=== PATIENT | female | born 1970 | race Caucasian/White ===

== ENCOUNTER 2023-12-10 21:25 | Emergency (ER) | payer MEDICAID, SELFPAY ==
[2023-12-10 21:26] VITALS: BP 118/81; PULSE 95; RESP 14; TEMP 36.3; O2SAT 100; BMI 41.1
--- NOTE | 2023-12-10 21:35 | EDS_ITS ---
HPI HPI - Female History of Present Illness Chief Complaint: Female C/O Informant: patient Pain Pain: Positive for Pelvic Pain Onset: Month(s) (1) Context: Gradual Onset Timing: Intermittent Quality: Positive for Dull Location: RLQ Current Severity: Severe Maximum Severity: Severe Worsened by: - (Everything) Relieved by: - (Nothing) Bleeding Issue: Positive for Vaginal bleeding Timing: Intermittent Current Severity: Mild Associated Symptoms Associated Symptoms: Negative for Dysuria, Frequency, Urgency or Hematuria Narrative Narrative: Patient presents with pelvic pain that has been intermittent over the last month. Patient states the pain became worse again tonight. Patient states it came on gradually. Patient describes the pain as dull and throbbing. Patient states the pain is mainly over the right lower abdomen. Patient states everything makes it worse. Patient states nothing makes it better. Patient admits to occasional vaginal bleeding but denies passing any clots or tissue. Patient denies any abnormal vaginal discharge. Patient denies any urinary complaints. Patient denies any fevers or chills. Patient does admit to some nausea and vomiting. PFSH PFSH Home Medications ?Medication ?Instructions ?Recorded ?Last Taken ?Type hydrocodone-acetaminophen 5-325mg 1 tab PO Q6H PRN PRN Pain 3 days 12/11/23 Unknown Rx 5mg-325mg #10 TABLETS Allergy/AdvReac Type Severity Reaction Status Date / Time clarithromycin (From Biaxin) Allergy Severe Anaphylaxis Verified 12/10/23 21:29 Family History (Updated 12/10/23 @ 21:34 by Linda Castillo) Other S/P removal of left ovary Surgical History (Updated 12/10/23 @ 21:[address] Adan Zuñiga DO) History of left oophorectomy Hx of spinal fusion History of cholecystectomy Social History (Updated 12/10/23 @ 21:[address] Adan Zuñiga DO) Smoking Status: Former smoker Electronic Cigarette Use: with nicotine ROS ROS ED Constitutional Constitutional ED: Denies chills or fever(s) Eyes Eyes: Denies blurry vision or change in vision ENT ENT ED: Denies rhinorrhea or sore throat Cardiovascular Cardiovascular: Denies chest pain or palpitations Respiratory/Chest Respiratory/Chest: Denies cough or dyspnea Gastrointestinal Gastrointestinal: Reports abdominal pain, nausea and vomiting; Denies diarrhea Genitourinary Genitourinary ED: Denies dysuria or hematuria Musculoskeletal Musculoskeletal: Denies back pain or neck pain Integumentary Denies abscess or rash Neurologic Neurologic: Denies headache(s) or weakness Allergic/Immunologic Allergic/Immunologic ED: Denies mouth swelling or urticaria EXAM Physical Exam Const Vital Signs: 12/10/23 21:26 12/10/23 23:26 Temperature 97.4 F L 98.1 F Temperature Source Temporal Oral Pulse Rate 95 68 Respiratory Rate 14 16 Blood Pressure 118/81 H 102/70 Blood Pressure Mean 93 80 Pulse Ox 100 100 Oxygen Delivery Method Room Air Room Air Positive well nourished and well developed General Appearance ED: well developed and NAD HEENT Reports moist mucous membranes Neck supple and no JVD Resp normal respiratory effort and clear to auscultation bilaterally Cardio regular rate and regular rhythm GI soft to palpation and non-distended Palpation: tender RLQ and guarding RLQ Extremity normal to inspection and full ROM Neuro oriented x3, CN's II-XII intact bilaterally and no sensory deficits noted Sensorium / Orientation: alert Motor Exam: strength 5/5 throughout Psych mental status grossly normal Skin no rashes or lesions noted MDM MDM MDM Narrative Medical decision making narrative: Differential diagnosis includes appendicitis, ovarian cyst, ovarian mass, diverticulitis, colitis, ureteral calculus, urinary tract infection, pyelonephritis, and gastroenteritis. CBC will be obtained to assess for leukocytosis and anemia. Basic metabolic profile will be obtained to assess for electrolyte abnormality and renal function. Urinalysis will be obtained to assess for urinary tract infection and hematuria. CT scan of the abdomen pelvis will be obtained to assess for ureteral calculus, ovarian cyst, ovarian mass, and appendicitis. Lab Data Attestation: I reviewed the patient's lab results. Lab results narrative: CBC was reviewed and was within normal limits. Basic metabolic profile was r eviewed. Potassium was slightly low at 3.0. The remainder was within normal limits. Serum hCG was reviewed and was negative. Urinalysis was reviewed. There is no evidence of urinary tract infection or hematuria. Labs: Laboratory Results - last 24 hr 12/10/23 12/10/23 22:00 22:10 WBC 8.5 RBC 4.94 Hgb 14.5 Hct 43.8 MCV 88.7 MCH 29.4 MCHC 33.1 RDW Std Deviation 46.1 H RDW Coeff of Krystal 14.3 Plt Count 364 MPV 9.5 Immature Gran % (Auto) 0.200 Neut % (Auto) 51.6 Lymph % (Auto) 40.1 [place] % (Auto) 6.3 Eos % (Auto) 1.4 Baso % (Auto) 0.4 Absolute Neuts (auto) 4.4 Absolute Lymphs (auto) 3.40 Nucleated RBC % 0 Sodium 141 Potassium 3.0 L Chloride 110 H Carbon Dioxide 25.0 Anion Gap 6 BUN 14 Creatinine 0.77 Estim Creat Clear Calc 114.25 Est GFR (MDRD) Af Amer 101 Est GFR (MDRD) Non-Af 83 BUN/Creatinine Ratio 18.1 Glucose 111 H Calcium 8.3 L Serum , Qual NEGATIVE Urine Color Yellow Urine Clarity Clear Urine pH 5.0 Ur Specific [place] 1.015 Urine Protein Negative Urine Glucose (UA) Normal Urine Ketones Negative Urine Occult Blood Negative Urine Nitrite Negative Urine Bilirubin Negative Urine Urobilinogen Normal Ur Leukocyte Esterase 100 H Urine RBC 0-5 SEEN Urine WBC 0-5 SEEN Ur Squamous Epith Cells 0-5 SEEN Urine Bacteria 0 SEEN Urine Mucus 0 SEEN Urine Trichomonas 0-5 SEEN Radiography Diagnostic Testing: CT scan of the abdomen pelvis was obtained. There is a right ovarian cyst. There is no evidence of appendicitis. There is no free fluid or free air. There is no other acute abnormality noted. This was interpreted by the radiologist was also independently reviewed by myself. Treatment and Re-Evaluation Narrative: Patient was given IV fluids, morphine, and Zofran. Patient was given a repeat dose of Zofran. Patient was advised of her findings. Patient was given a prescription for a short course of [place]. Patient was instructed to follow-up with her primary care physician and [employer] in 5 to 7 days. Patient was instructed to return if worse in any way. Patient understood and was agreeable with the plan. All questions were answered. Discharge Plan Triage Chief Complaint: Female C/O ED Provider: Adan Zuñiga Dx/Rx/DC Orders Clinical Impression: Pelvic pain, Ovarian cyst Instructions: ED Ovarian Cyst, ED Pelvic Pain, Unknown Cause Prescriptions: New hydrocodone-acetaminophen 5-325 mg tablet 1 tab PO Q6H PRN PRN (Reason: Pain) 3 Days Qty: 10 0RF Primary Care Provider: Care Physician,No Primary Referrals: Adan Carter MD [Med Staff - Bag Shop Worker] - 5-7 Days Dennise Mata MD [Med Staff - Active Staff] - 3-5 Days Care Physician,No Primary [Primary Care Provider] - Print Language: Citizen Of [place] Disposition Disposition: Home, Self Care
--- NOTE | 2023-12-10 21:54 | CT_ITS ---
EXAM: CT ABDOMEN AND PELVIS WITH INTRAVENOUS CONTRAST CLINICAL INDICATION: Abdominal pain TECHNIQUE: Helically acquired images were obtained of the abdomen and pelvis with intravenous contrast. This CT exam was performed using one or more of the following dose reduction techniques: automated exposure control, adjustment of the mA and/or kV according to patient size, and/or use of iterative reconstruction technique. CONTRAST: IV 100mL [id number] RADIATION DOSE: Total DLP: 491.36 mGy-cm. COMPARISON: No relevant prior studies available. FINDINGS: LIMITATIONS: Streak artifact arises from Clark style thoracolumbar fixation rods. LOWER THORAX: Visualized lung bases are clear. No pericardial effusion. ABDOMEN: LIVER: Small simple hepatic cysts. Hepatic veins and portal veins enhance normally. Right hepatic lobe is mildly elongated measuring 18.2 cm in cephalocaudal dimension. GALLBLADDER AND BILE DUCTS: Cholecystectomy. No biliary ductal dilatation or calcified common duct stone. PANCREAS: Unremarkable. No focal cystic or solid mass. SPLEEN: Unremarkable. Normal size without focal cystic or solid mass. ADRENALS: Unremarkable. No nodules. KIDNEYS AND URETERS: Unremarkable. Normal renal size and position. No hydronephrosis. No renal or obstructing ureteral stones. STOMACH AND BOWEL: Unremarkable. No gastric mural thickening, periduodenal inflammatory changes or distended small bowel loops. No findings of small bowel obstruction, diverticulitis or colitis. PELVIS: APPENDIX: No evidence of acute appendicitis. BLADDER: Unremarkable. REPRODUCTIVE: The uterus tilts to the right. 6 mm rounded enhancing nodule posterior to the endometrial stripe within the lower uterine segment consistent with small fibroid. Absent left ovary. Right ovary contains a 2.7 cm rounded thin-walled unilocular cystic structure. ABDOMEN and PELVIS: INTRAPERITONEAL SPACE: Unremarkable. No ascites or other fluid collection. No free air. BONES/JOINTS: Lower lumbar facet arthritis. Degenerative disc space narrowing with endplate sclerosis at the L5/S1 level. SI joints are unremarkable. 12 mm rounded lucent lesion with a thin well-defined sclerotic margin within the left ilium, consistent with a benign bone cyst. Thoracolumbar fusion with Clark style reyna is in place. Moderate lumbar levoscoliosis. SOFT TISSUES: Unremarkable. No discrete abdominal or pelvic wall hernia. VASCULATURE: Minimally calcific abdominal aorta and its branches. SMA and LOPEZ enhance normally. LYMPH NODES: Unremarkable. No enlarged lymph nodes. CT/Abdomen/Pelvis W IV Cont ONLY IMPRESSION: 2.7 cm dominant follicle within the right ovary. Previous left oophorectomy. Previous spinal fusion. No findings of small bowel obstruction, colitis or obstructive uropathy. Electronically Signed: Mack Barrett MD at 0:35 EDT ,
[2023-12-10] MEDS: 0.9% Normal Saline (1000mL) 1,000 ML 999 ML IV (22:07)
[2023-12-10] MEDS: Morphine 4 MG/ML Syringe IV (22:08)
[2023-12-10] MEDS: Ondansetron 4 MG/2 ML Vial IV ×2 (22:08→23:47)
[2023-12-10 22:10] LABS: Absolute Neutrophil Count 4.4 X10^3/uL (2.0-7.7); Basophil# 0.03 X10^3/uL; Basophil% 0.4 % (0-1); Eosinophil# 0.12 X10^3/uL; Eosinophils% 1.4 % (0-5); Hematocrit 43.8 % (37-47); Hemoglobin 14.5 g/dL (12.0-15.0); Lymphocyte % 40.1 % (19-41); Mean Corp Hgb Conc 33.1 g/dL (32-36); Mean Corpuscular Hgb 29.4 pg (27.0-32.0); Mean Corpuscular Volume 88.7 fL (81-99); Mean Platelet Vol. 9.5 fl (6.2-12.0); Monocyte# 0.53 X10^3/uL; Monocyte% 6.3 % (0-10); NRBC Flagged by Analyzer 0 % (0-5); Neutrophil # 4.38 X10^3/uL (2.7-7.7); Neutrophil % 51.6 % (47-70); Platelet Count 364 K/mm3 (150-450); RBC Distribution Width CV 14.3 % (11.6-14.6); RBC Distribution Width SD 46.1 fl (35.1-43.9); Red Blood Count 4.94 M/mm3 (4.2-5.4); White Blood Count 8.5 K/mm3 (4.4-11.0)
[2023-12-10 22:19] LABS: Bacteria 0 SEEN /hpf (None Seen); Mucous, Urine 0 SEEN /hpf (<or=2+)
[2023-12-10 22:22] LABS: Color, Urine Yellow (Yellow); Glucose, Dipstick Normal (Normal); Ketone-Dipstick Negative (Negative); Leukocyte Esterase-Dipstick 100 /ul (Negative); Nitrite-Dipstick Negative (Negative); Occult Blood-Urine Negative /ul (Negative); Protein-Dipstick Negative (Negative); Specific Gravity, Urine 1.015 (1.002-1.030); Urine Bilirubin Dipstick Negative (Negative); Urine Clarity Clear (Clear); Urine Urobilinogen Normal (Normal)
[2023-12-10 22:26] LABS: Anion Gap 6 (5-15); BUN 14 mg/dL (7-18); BUN/Creat Ratio 18.1 RATIO (10-20); Calcium,Total 8.3 mg/dL (8.5-10.1); Chloride 110 mmol/L (98-107); Creatinine, Serum 0.77 mg/dL (0.55-1.02); EST Glomerular Filtration Rate 83 mL/min (>60); Est Glom Filt Rate - Afr Amer 101 mL/min (>60); Estimated Creatinine Clearance 114.25 ml/min; Glucose 111 mg/dL (74-106); Sodium Level 141 mmol/L (136-145)
[2023-12-10 22:36] LABS: Red Blood Cells-Urine 0-5 SEEN /hpf (0-5); Squamous Epithelial Cells - UA 0-5 SEEN /hpf (5-10); Trichomonas 0-5 SEEN /hpf (None Seen); White Blood Cells 0-5 SEEN /hpf (0-5)
[2023-12-10 22:37] LABS: Internal QC Validated? YES +Cl - CLEAR BKGD; Pregnancy, Serum, hCG Quali. NEGATIVE Negative
[2023-12-10 23:26] VITALS: BP 102/70; PULSE 68; RESP 16; TEMP 36.7; O2SAT 100
[2023-12-11 00:48] VITALS: BP 102/68; PULSE 57; RESP 16; TEMP 36.6; O2SAT 99
== END 2023-12-11 00:55 | disposition home or self-care (01) ==
PROVIDERS: Emergency Provider Emergency Medicine; Visit Provider Emergency Medicine
DX: N83.201 Unspecified ovarian cyst, right side (principal); Z87.891 Personal history of nicotine dependence; R10.2 Pelvic and perineal pain
CPT/HCPCS: 74177; 80048; 81001; 84703; 85025; 96361; 96374; 96375; 96376; 99283; J7030; Q9967; A4216; J2405